=== PATIENT | male | born 1985 | race Caucasian/White ===

== ENCOUNTER 2019-02-12 17:41 | Emergency (ER) | payer MEDICAID ==
--- NOTE | 2019-02-12 18:03 | Emergency Department Record ---
History of Present Illness - General Chief complaint: Extremity Problem Stated complaint: RIGHT LEG PROBLEM Time Seen by Provider: 02/12/19 17:50 Source: Patient Mode of Arrival: Ambulatory Limitations: No limitations - History of Present Illness Initial comments: The patient is here due to worsening R knee pain. The patient had a hx of a R tibial plateau fx 3 months ago and was treated non-operatively and with non weight bearing. He recently was changed to a R knee brace 3 weeks ago and was given the go ahead for ROM of the R knee. 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 The patient yesterday was trying to get into the car and he felt a "pop" and pain to the old fx site. Since the R knee has become more swollen and painful. He denies any CP, SOB, thigh or calf pain but does feel the R foot is slightly more swollen. MD Complaint: Extremity pain, Joint pain Onset/Timin -: Days(s) Location: Right, Knee History of Same: Yes Radiation: None Severity scale (1-10): 4 Quality: Aching Consistency: Constant Worsens with: Rest Associated Symptoms: Denies other symptoms - Related Data Allergies Allergy/AdvReac Type Severity Reaction Status Date / Time No Known Allergies Allergy Unverified 02/03/19 18:46 Travel Screening - Travel/Exposure Within Last 30 Days Have you traveled within the last 30 days?: No Review of Systems Constitutional: Denies: Chills, Fever Eyes: Denies: Eye discharge ENT: Denies: Congestion Respiratory: Denies: Cough, Dyspnea Past Medical History - SOCIAL HISTORY Smoking Status: Never smoker Alcohol Use: None Drug Use: None - RESPIRATORY Hx Respiratory Disorders: No - CARDIOVASCULAR Hx Cardio Disorders: No - NEURO Hx Neuro Disorders: No - GI Hx GI Disorders: No - Hx Genitourinary Disorders: No - ENDOCRINE Hx Endocrine Disorders: No - MUSCULOSKELETAL Hx Musculoskeletal Disorders: No - PSYCH Hx Psych Problems: No - HEMATOLOGY/ONCOLOGY Hx Hematology/Oncology Disorders: No Family Medical History Any Significant Family History?: No Physical Exam - General General Appearance: Alert, Oriented x3, Cooperative, No acute distress - Head Head exam: Atraumatic, Normocephalic - Eye Eye exam: Normal appearance - Extremities Extremities exam: Joint swelling, Normal capillary refill, Tenderness (There is diffuse tenderness to the inferior R knee anteriorly.), Other (The R leg is NVI.). negative: Normal inspection (There does appear to be a mild R knee joint effusion.), Calf tenderness (There is no calf or thigh tenderness.), Full ROM - Neurological Neurological exam: Alert. negative: Motor sensory deficit - Psychiatric Psychiatric exam: negative: Anxious - Skin Skin exam: negative: Rash Course Vital Signs 02/12/19 17:44 Temperature 97.6 F Pulse Rate 80 Respiratory 22 Rate Blood Pressure 128/78 Pulse Ox 99 - Reevaluation(s) Reevaluation #1: I did discuss the xrays with the patient and did stress the need for follow up with his Orthopedic Surgeon Dr. Reyes. Due to the hx of DVT and the new very mild foot and ankle edema I did recommend transfer for a leg US to R/O DVT. I think it is quite unlikely that the patient has a new clot since he is on Xarelto but am not sure how compliant the patient is. I did recommend transfer for the test because as I explained to the patient and an undiagnosed DVT can travel to the lungs or heart and cause a PE, stroke, disability and even . The patient understands and accepts the risks of refusing and he was directed to return to the ER if he changes his mind about obtaining the test. 02/12/19 18:38 Reevaluation #2: The patient is doing very well at this time. I did discuss the xray results with him and the need for F/U with his Orthopedic Surgeon. 02/12/19 18:57 Medical Decision Making - Data Complexity MDM Data: X-Ray Ordered and/or Reviewed - Radiology Data Radiology results: Report reviewed (R knee: Mildly depressed fx of lateral tibial plateau. Neg for effusion or dislocation. Unable to compare to old films due to none being available here.) Disposition Disposition: Discharge Clinical Impression: Knee pain, right Qualifiers: Chronicity: acute Qualified Code(s): M25.561 - Pain in right knee Disposition: Home, Self-Care Condition: (2) Stable Instructions: Swollen Knee Joint (ED) Additional Instructions: Please continue your home pain medicines and ice and elevate the R knee. Please continue to use the brace and please see Dr. Reyes next week for recheck. Return to the ER for any worsening symptoms. Forms: Patient Portal Access Time of Disposition: 18:56 Quality - Quality Measures Quality Measures: N/A - Blood Pressure Screening View Details: Yes Does Patient Have Any of the Following: No Blood Pressure Classification: Pre-Hypertensive BP Reading Systolic Measurement: 128 Diastolic Measurement: 78 Screening for High Blood Pressure: < Pre-Hypertensive BP, F/U Documented > [G8950] Pre-Hypertensive Follow-up Interventions: Referral to alternative/primary care provider.
--- NOTE | 2019-02-15 08:02 | RADIOLOGY REPORT ---
EXAM: RIGHT KNEE, THREE VIEWS HISTORY: HISTORY OF TIBIAL PLATEAU FRACTURE. FELT POP TODAY. NOW WITH PAIN AND SWELLING. TECHNIQUE: Three views of the right knee were obtained. Comparison: None at this time. Correlation is made with report from prior radiographic examination from [facility] dated 01/22/19. Encounter: Initial. FINDINGS: There is normal bone mineralization. There is a mildly depressed fracture of the lateral tibial plateau. The fracture lines are somewhat ill defined raising the possibility of healing. No other definite fracture is seen nor is there dislocation. Mild degenerative changes of each hip. No joint effusion. There is enthesopathic spurring at the patellar tendon insertion on the tibial tuberosity. IMPRESSION: MILDLY DEPRESSED FRACTURE OF THE LATERAL TIBIAL PLATEAU. CHANGE FROM PRIOR EXAMINATION CANNOT BE DETERMINED. NO JOINT EFFUSION. JOB NUMBER: [id number] MTDD
== END 2019-02-12 19:12 | disposition home or self-care (01) ==
LOC: ER 17:41
DX: M25.561 Pain in right knee (principal); R60.0 Localized edema; Z86.718 Personal history of other venous thrombosis and embolism; Z79.01 Long term (current) use of anticoagulants
CPT/HCPCS: 99283; 99284

== ENCOUNTER 2019-03-26 22:40 | Emergency (ER) | payer MEDICAID ==
--- NOTE | 2019-03-26 23:14 | Emergency Department Record ---
History of Present Illness - General Chief complaint: Dental Stated complaint: DENTAL PAIN Time Seen by Provider: 03/26/19 22:55 Source: Patient Mode of Arrival: crutches Limitations: No limitations - History of Present Illness Initial comments: pt has dental abscess beginning starting today. he plans on going to a dentist. complaint: Tooth pain Onset/Timin -: Hour(s) Location: Tooth # Severity: Moderate Severity scale (1-10): 5 Quality: Aching Consistency: Constant, Getting worse Improves with: None Worsens with: Eating Context- Dental: Poor dental care Associated Symptoms: Toothache - Related Data Home Medications Medication Instructions Recorded Confirmed Last Taken Hydrocodone/Acetaminophen 1 each PO Q6H 03/26/19 03/26/19 Unknown [Hydrocodone-Acetamin 5-300 mg] Previous Rx's Medication Instructions Recorded Ibuprofen [Motrin] 800 mg PO Q8H PRN #20 tab 03/26/19 Penicillin V Potassium 500 mg PO Q6HR #28 tablet 03/26/19 Allergies Allergy/AdvReac Type Severity Reaction Status Date / Time No Known Allergies Allergy Unverified 02/03/19 18:46 Travel Screening - Travel/Exposure Within Last 30 Days Have you traveled within the last 30 days?: No - Travel Symptoms Symptom Screening: None Review of Systems Reviewed: No additional complaints except as noted below Constitutional: Reports: As per HPI. Denies: Chills, Fever, Malaise, Night sweats, Weakness, Weight change Eyes: Reports: As per HPI. Denies: Eye discharge, Eye pain, Photophobia, Vision change ENT: Reports: As per HPI. Denies: Congestion, Dental pain, Ear pain, Epistaxis, Hearing loss, Throat pain Respiratory: Reports: As per HPI. Denies: Cough, Dyspnea, Hemoptysis, Stridor, Wheezes Cardiovascular: Reports: As per HPI. Denies: Arrhythmia, Chest pain, Dyspnea on exertion, Edema, Murmurs, Orthopnea, Palpitations, Paroxysmal nocturnal dyspnea, Rheumatic Fever, Syncope Endocrine: Reports: As per HPI. Denies: Fatigue, Heat or cold intolerance, Polydipsia, Polyuria Gastrointestinal: Reports: As per HPI. Denies: Abdominal pain, Constipation, Diarrhea, Hematemesis, Hematochezia, Melena, Nausea, Vomiting Genitourinary: Reports: As per HPI. Denies: Dysuria, Frequency, Hematuria, Inc ontinence, Retention, Testicular pain, Testicular mass, Urgency Musculoskeletal: Reports: As per HPI. Denies: Arthralgia, Back pain, Gout, Joint swelling, Myalgia, Neck pain Skin: Reports: As per HPI. Denies: Bruising, Change in color, Change in hair/nails, Lesions, Pruritus, Rash Neurological: Reports: As per HPI. Denies: Abnormal gait, Confusion, Headache, Numbness, Paresthesias, Seizure, Tingling, Tremors, Vertigo, Weakness Psychiatric: Reports: As per HPI. Denies: Anxiety, Auditory hallucinations, Depression, Homicidal thoughts, Suicidal thoughts, Visual hallucinations Hematological/Lymphatic: Reports: As per HPI. Denies: Anemia, Blood Clots, Easy bleeding, Easy bruising, Swollen glands Past Medical History - SOCIAL HISTORY Smoking Status: Never smoker Alcohol Use: Rare Drug Use: None - RESPIRATORY Hx Respiratory Disorders: No - CARDIOVASCULAR Hx Cardio Disorders: No - NEURO Hx Neuro Disorders: No - GI Hx GI Disorders: No - Hx Genitourinary Disorders: No - ENDOCRINE Hx Endocrine Disorders: No - MUSCULOSKELETAL Hx Musculoskeletal Disorders: No - PSYCH Hx Psych Problems: No - HEMATOLOGY/ONCOLOGY Hx Hematology/Oncology Disorders: No Family Medical History Any Significant Family History?: No Family Hx Comment (NOT TO BE USED IN PLACE OF ITEMS BELOW): denies Physical Exam - General General Appearance: Alert, Oriented x3, Cooperative, Mild distress - Head Head exam: Normal inspection - Eye Eye exam: Normal appearance, PERRL, EOMI Pupils: Normal accommodation - ENT ENT exam: Normal exam, Mucous membranes moist, Normal external ear exam, Normal orophraynx Ear exam: Normal external inspection. negative: External canal tenderness Nasal Exam: Normal inspection. negative: Discharge, Sinus tenderness Mouth exam: Normal external inspection, Tongue normal Teeth exam: Dental caries, Dental tenderness # Throat exam: Normal inspection. negative: Tonsillar erythema, Tonsillar exudate - Neck Neck exam: Normal inspection, Full ROM. negative: Tenderness - Respiratory Respiratory exam: Normal lung sounds bilaterally. negative: Respiratory distress - Cardiovascular Cardiovascular Exam: Regular rate, Normal rhythm, Normal heart sounds - GI/Abdominal GI/Abdominal exam: Soft, Normal bowel sounds. negative: Tenderness - Rectal Rectal exam: Deferred - exam: Deferred - Extremities Extremities exam: Normal inspection, Full ROM, Normal capillary refill. negative: Tenderness - Back Back exam: Reports: Normal inspection, Full ROM. Denies: Muscle spasm, Rash noted, Tenderness - Neurological Neurological exam: Alert, Normal gait, Oriented X3, Reflexes normal - Psychiatric Psychiatric exam: Normal affect, Normal mood - Skin Skin exam: Dry, Intact, Normal color, Warm Course Vital Signs 03/26/19 22:46 Temperature 97.9 F Pulse Rate [ 100 H Left] Respiratory 18 Rate Blood Pressure 139/109 [Left Arm] Pulse Ox 97 Disposition Disposition: Discharge Clinical Impression: Dental abscess Disposition: Home, Self-Care Condition: (1) Good Instructions: Dental Abscess (ED) Additional Instructions: follow up with dentist CASANDRA. return sooner if worse. sleep elevated. moist heat to jaw. Prescriptions: Penicillin V Potassium 500 mg PO Q6HR #28 tablet Ibuprofen [Motrin] 800 mg PO Q8H PRN #20 tab PRN Reason: Pain - Mod To Severe (5-10) Quality - Quality Measures Quality Measures: N/A - Blood Pressure Screening Does Patient Have Any of the Following: No Blood Pressure Classification: Hypertensive Reading Systolic Measurement: 139 Diastolic Measurement: 109 Screening for High Blood Pressure: < First Hypertensive BP, F/U Documented > [G8950] First Hypertensive Follow-up Interventions: Follow-up with rescreen GT 1 day and LT 4 weeks.
[2019-03-26] MEDS ORDERED: PENICILLIN V POTASSIUM 250 MG TAB PO ONE (23:15)
[2019-03-26] MEDS ORDERED: IBUPROFEN 600 MG TABLET PO ONE (23:15)
== END 2019-03-26 23:30 | disposition home or self-care (01) ==
LOC: ER 22:40
DX: K04.7 Periapical abscess without sinus (principal)
CPT/HCPCS: 99283